=== PATIENT | male | born 1960 | race Two or more races ===

== ENCOUNTER 2023-06-11 02:11 | Emergency (ER) | payer SELFPAY ==
[~2023-06-11] VITALS: Ht 170.2 cm; Wt 75.0 kg
[2023-06-11 02:48] LABS: Urine WBC None Seen /hpf (0 - 3)
[2023-06-11 02:53] LABS: Basophils # (auto) 0.1 10 ^3/uL (0-0.2); Basophils % (auto) 0.4 % (0.0-2.0); Eosinophils # (auto) 0.1 10 ^3/uL (0-0.8); Eosinophils % (auto) 1.1 % (0.0-7.0); Hematocrit 42.8 % (41.0-53.0); Hemoglobin 14.6 g/dL (13.5-17.5); Lymphocytes # (auto) 1.1 10 ^3/uL (0.4-5.4); Lymphocytes % (auto) 8.4 % (10.0-50.0); Mean Corpuscular Volume 91.1 fL (80.0-100.0); Monocytes # (auto) 0.8 10 ^3/uL (0-1.3); Monocytes % (auto) 6.2 % (0.0-12.0); Neutrophils # (auto) 10.5 10 ^3/uL (1.6-8.6); Neutrophils % (auto) 83.9 % (37.0-80.0); Nucleated Red Blood Cells % 0.1 %; Red Cell Distribution Width 12.6 % (11.8-14.3); White Blood Cell 12.5 10^3/uL (4.4-10.8)
[2023-06-11 02:58] LABS: Urine Amorphous Crystal MOD /hpf (None Seen); Urine Bacteria NONE SEEN /hpf (None Seen); Urine Blood Negative /uL (Negative); Urine Clarity CLOUDY (Clear); Urine Color Yellow (Yellow); Urine Mucus FEW (None Seen); Urine Protein, UAD TRACE (Negative); Urine Specific Gravity 1.024 (1.001-1.035); Urine Urobilinogen Normal (Negative)
[2023-06-11 03:09] LABS: Alanine Aminotransferase 55 U/L (7-40); Albumin 4.4 g/dL (3.2-4.8); Alkaline Phosphatase 92 U/L (46-116); Anion Gap 4 (5-15); Aspartate Aminotransferase 34 U/L (13-40); BUN/Creatinine Ratio 13.7 (10.0-20.0); Bilirubin, Total 0.6 mg/dL (0.2-1.0); Blood Urea Nitrogen 13 mg/dL (9-23); Calcium 9.8 mg/dL (8.7-10.4); Carbon Dioxide 30 mmol/L (20-30); Chloride 105 mmol/L (98-107); Glucose 139 mg/dL (74-106); Lipase 73 U/L (12-53); Potassium 3.8 mmol/L (3.5-5.1); Sodium 139 mmol/L (136-145); Total Protein 6.9 g/dL (5.7-8.2)
[2023-06-11] MEDS: ONDANSETRON HCL 4 MG/2 ML VIAL IV ONE (07:34)
[2023-06-11] MEDS: MORPHINE SULFATE 4 MG/ML SYR/VIAL IV ONE (07:34)
[2023-06-11] MEDS: metroNIDAZOLE 500MG/100ML 100 ML IV ONE (07:37)
[2023-06-11] MEDS ORDERED: ZOFR4T PO (07:53)
[2023-06-11] MEDS ORDERED: METR-344 PO (07:53)
[2023-06-11 08:44] VITALS: BP 107/73; PULSE 63; RESP 18; TEMP 98; O2SAT 98
== END 2023-06-11 08:48 | disposition home or self-care (01) ==
LOC: ER 02:11 → EDBD 02:11 → ER 08:48
DX: K52.9 Noninfective gastroenteritis and colitis, unspecified (principal); Z79.899 Other long term (current) drug therapy
CPT/HCPCS: 36415; 74176; 80053; 81001; 83690; 84484; 85025; 96365; 99285; J3490